=== PATIENT | female | born 1995 | race African-American/Black ===

== ENCOUNTER 2017-09-08 16:10 | Emergency (ER) | payer MEDICAID ==
[~2017-09-08] VITALS: Ht 177.8 cm; Wt 70.3 kg
[2017-09-08 16:58] LABS: Basophils # (auto) 0 uL; Basophils % (auto) 0.7 % (0.0-2.0); Eosinophils # (auto) 0.1 uL; Eosinophils % (auto) 2.2 % (0.0-7.0); Hematocrit 38.9 % (36.0-46.0); Hemoglobin 13.1 g/dL (12.2-16.2); Lymphocytes # (auto) 2.7 uL; Lymphocytes % (auto) 50.5 % (10.0-50.0); Mean Corpuscular Hemoglobin 30.1 pg (28.0-32.0); Mean Corpuscular Hgb Conc. 33.8 g/dL (32.0-36.0); Mean Corpuscular Volume 89.2 fL (80.0-100.0); Mean Platelet Volume 9.2 fL (6.9-10.8); Monocytes # (auto) 0.3 uL; Monocytes % (auto) 6.1 % (0.0-12.0); Neutrophils # (auto) 2.2 uL; Neutrophils % (auto) 40.5 % (37.0-80.0); Nucleated Red Blood Cells % 0.1 %; Platelet Count (auto) 167 10^3/uL (140-450); Red Cell Distribution Width 14.9 % (11.8-14.3); White Blood Cell 5.4 10^3/uL (4.4-10.8)
[2017-09-08 17:11] LABS: Albumin 3.8 g/dL (3.4-5.0); Anion Gap 7 (5-15); Aspartate Aminotransferase 14 U/L (15-37); BUN/Creatinine Ratio 10.7; Blood Urea Nitrogen 9 mg/dL (7-18); Carbon Dioxide 26 mmol/L (21-32); Chloride 106 mmol/L (98-107); GFR African American 109 mL/min; GFR Non-African American 90 mL/min; Glucose 86 mg/dL (74-106); Magnesium 2.1 mg/dL (1.6-2.6); Sodium 139 mmol/L (136-145)
[2017-09-08 17:16] LABS: Alkaline Phosphatase 61 U/L (45-117); Bilirubin, Total 0.3 mg/dL (0.2-1.0); Total Protein 8.1 g/dL (6.4-8.2)
[2017-09-08 22:19] VITALS: BP 100/52
== END 2017-09-08 22:35 | disposition home or self-care (01) ==
LOC: ER 16:16
DX: G93.0 Cerebral cysts (principal); R07.89 Other chest pain
CPT/HCPCS: 36415; 70450; 71010; 80053; 83735; 84484; 84702; 85025; 85379; 93005

== ENCOUNTER 2017-12-05 14:39 | Emergency (ER) | payer MEDICAID ==
[~2017-12-05] VITALS: Ht 180.3 cm; Wt 71.7 kg
[2017-12-05 22:10] LABS: Basophils # (auto) 0 uL; Basophils % (auto) 0.9 % (0.0-2.0); Eosinophils # (auto) 0.1 uL; Eosinophils % (auto) 1.4 % (0.0-7.0); Hematocrit 39.9 % (36.0-46.0); Hemoglobin 13.5 g/dL (12.2-16.2); Lymphocytes # (auto) 2.6 uL; Lymphocytes % (auto) 49.6 % (10.0-50.0); Mean Corpuscular Hemoglobin 30.3 pg (28.0-32.0); Mean Corpuscular Hgb Conc. 33.7 g/dL (32.0-36.0); Mean Corpuscular Volume 89.7 fL (80.0-100.0); Monocytes # (auto) 0.3 uL; Monocytes % (auto) 5.1 % (0.0-12.0); Neutrophils # (auto) 2.3 uL; Nucleated Red Blood Cells % 0.2 %; Platelet Count (auto) 188 10^3/uL (140-450); Red Blood Cells 4.44 10^6/uL (4.0-5.20); Red Cell Distribution Width 14.6 % (11.8-14.3); White Blood Cell 5.3 10^3/uL (4.4-10.8)
[2017-12-05 22:33] LABS: Albumin 4.1 g/dL (3.4-5.0); BUN/Creatinine Ratio 11.5; Bilirubin, Total 0.8 mg/dL (0.2-1.0); Calcium 9.1 mg/dL (8.5-10.1); Magnesium 2.3 mg/dL (1.6-2.6); Potassium 3.9 mmol/L (3.5-5.1); Total Protein 8.4 g/dL (6.4-8.2)
[2017-12-05 23:23] LABS: Urine Bacteria NONE SEEN /hpf (None Seen); Urine Blood Negative /uL (Negative); Urine Mucus FEW (None Seen); Urine WBC 11 /hpf (0 - 5)
[2017-12-06] MEDS ORDERED: SODIUM CHLORIDE 0.9% 1,000 ML IV ONE (01:00)
[2017-12-06 02:08] VITALS: BP 110/78
== END 2017-12-06 02:22 | disposition home or self-care (01) ==
LOC: ER 14:39
DX: N39.0 Urinary tract infection, site not specified (principal); Z88.0 Allergy status to penicillin
CPT/HCPCS: 36415; 80053; 81001; 81025; 82150; 83690; 83735; 85025; 96360

== ENCOUNTER 2018-05-16 14:49 | Emergency (ER) | payer MEDICAID, OTHER ==
[~2018-05-16] VITALS: Ht 177.8 cm; Wt 69.4 kg
[2018-05-16 17:16] LABS: Urine Bacteria NONE SEEN /hpf (None Seen); Urine Blood Negative /uL (Negative); Urine Mucus FEW (None Seen); Urine Specific Gravity 1.031 (1.001-1.035); Urine WBC 21 /hpf (0 - 5)
[2018-05-16 18:57] VITALS: BP 106/68
== END 2018-05-16 18:19 | disposition home or self-care (01) ==
LOC: ER 14:49
DX: S09.90XA Unspecified injury of head, initial encounter (principal); N39.0 Urinary tract infection, site not specified; Z88.0 Allergy status to penicillin; W01.198A Fall on same level from slipping, tripping and stumbling with subsequent striking against other object, initial encounter; Y93.01 Activity, walking, marching and hiking; Y99.8 Other external cause status; Y92.89 Other specified places as the place of occurrence of the external cause
CPT/HCPCS: 70450; 81001; 81025

== ENCOUNTER 2018-06-18 22:48 | Emergency (ER) | payer OTHER ==
[~2018-06-18] VITALS: Ht 177.8 cm; Wt 68.0 kg
[2018-06-18 23:12] VITALS: BP 118/75
== END 2018-06-19 04:00 | disposition left against medical advice (07) ==
LOC: EDBD 22:48 → ER 22:48
DX: R10.2 Pelvic and perineal pain (principal); R11.2 Nausea with vomiting, unspecified; Z53.21 Procedure and treatment not carried out due to patient leaving prior to being seen by health care provider

== ENCOUNTER 2020-01-07 14:01 | Emergency (ER) | payer OTHER ==
[~2020-01-07] VITALS: Ht 177.8 cm; Wt 72.6 kg
[2020-01-07 14:24] VITALS: BP 121/75
[2020-01-07 16:37] LABS: Urine Bacteria MANY /hpf (None Seen); Urine Blood Negative /uL (Negative); Urine Budding Yeast OCCASIONAL /hpf (None Seen); Urine Mucus FEW (None Seen); Urine WBC 9 /hpf (0 - 5)
== END 2020-01-07 20:02 | disposition home or self-care (01) ==
LOC: ER 14:04
DX: O23.41 Unspecified infection of urinary tract in pregnancy, first trimester (principal); O20.0 Threatened abortion; O99.511 Diseases of the respiratory system complicating pregnancy, first trimester; Z88.0 Allergy status to penicillin; Z3A.01 Less than 8 weeks gestation of pregnancy
CPT/HCPCS: 36415; 76801; 76817; 81001; 81025; 84702

== ENCOUNTER 2022-03-27 11:06 | Emergency (ER) | payer OTHER ==
[~2022-03-27] VITALS: Ht 177.8 cm; Wt 59.0 kg
[2022-03-27] MEDS ORDERED: LORazepam 2MG/ML-1ML VIAL IV ONE (11:30)
[2022-03-27] MEDS ORDERED: KETOROLAC TROMETH 30 MG/ML 1ML VIAL IV ONE (11:30)
[2022-03-27] MEDS ORDERED: SODIUM CHLORIDE 0.9% 1,000 ML IVB ONE (11:30)
[2022-03-27 11:52] LABS: Basophils # (auto) 0.1 10 ^3/uL (0-0.2); Basophils % (auto) 1.2 % (0.0-2.0); Eosinophils # (auto) 0.4 10 ^3/uL (0-0.8); Eosinophils % (auto) 7.6 % (0.0-7.0); Hematocrit 41.1 % (36.0-46.0); Hemoglobin 13.9 g/dL (12.2-16.2); Lymphocytes # (auto) 2.5 10 ^3/uL (0.4-5.4); Lymphocytes % (auto) 53.1 % (10.0-50.0); Mean Corpuscular Hemoglobin 31.5 pg (28.0-32.0); Mean Corpuscular Hgb Conc. 33.9 g/dL (32.0-36.0); Monocytes # (auto) 0.2 10 ^3/uL (0-1.3); Monocytes % (auto) 4.8 % (0.0-12.0); Neutrophils # (auto) 1.6 10 ^3/uL (1.6-8.6); Neutrophils % (auto) 33.3 % (37.0-80.0); Nucleated Red Blood Cells % 0.1 %; Red Blood Cells 4.42 10^6/uL (4.0-5.20); Red Cell Distribution Width 13.5 % (11.8-14.3); White Blood Cell 4.7 10^3/uL (4.4-10.8)
[2022-03-27 12:19] LABS: Albumin 4.2 g/dL (3.4-5.0); BUN/Creatinine Ratio 15.6; Magnesium 2.4 mg/dL (1.6-2.6); Potassium 4.5 mmol/L (3.5-5.1)
[2022-03-27 12:22] LABS: Bilirubin, Total 0.4 mg/dL (0.2-1.0); Total Protein 8.3 g/dL (6.4-8.2)
[2022-03-27 13:45] VITALS: BP 109/74
[2022-03-27] MEDS ORDERED: ALPR0.25 PO ×2 (14:14→16:37)
== END 2022-03-27 14:18 | disposition home or self-care (01) ==
LOC: EDBD 11:06 → EDUNIT# 11:06 → ER 11:06
DX: R07.89 Other chest pain (principal); F41.9 Anxiety disorder, unspecified; F12.10 Cannabis abuse, uncomplicated; Z88.0 Allergy status to penicillin; Z20.822 Contact with and (suspected) exposure to COVID-19
CPT/HCPCS: 36415; 71045; 80053; 83735; 84484; 85025; 85379; 87426; 93005; 96361; 96374; 96375; 99285; J1885; J2060; J7030

== ENCOUNTER 2022-04-09 12:12 | Inpatient (IN) | payer OTHER ==
[~2022-04-09] VITALS: Ht 177.8 cm; Wt 63.9 kg
[~2022-04-09 12:12] MED LIST: ALPR0.25 PO
[2022-04-09] MEDS ORDERED: ASPirin 81 mg TAB PO ONE (13:15)
[2022-04-09] MEDS ORDERED: MORPHINE SULFATE 4 MG/ML SYR/VIAL IV ONE (13:15)
[2022-04-09] MEDS ORDERED: ONDANSETRON HCL 4 MG/2 ML VIAL IV ONE (13:15)
[2022-04-09 13:29] LABS: Basophils # (auto) 0.1 10 ^3/uL (0-0.2); Basophils % (auto) 1.8 % (0.0-2.0); Eosinophils # (auto) 0.4 10 ^3/uL (0-0.8); Eosinophils % (auto) 9.8 % (0.0-7.0); Hematocrit 39.9 % (36.0-46.0); Hemoglobin 13.1 g/dL (12.2-16.2); Lymphocytes # (auto) 1.8 10 ^3/uL (0.4-5.4); Lymphocytes % (auto) 42.1 % (10.0-50.0); Mean Corpuscular Hemoglobin 30.2 pg (28.0-32.0); Mean Corpuscular Hgb Conc. 32.8 g/dL (32.0-36.0); Mean Corpuscular Volume 92.2 fL (80.0-100.0); Monocytes # (auto) 0.2 10 ^3/uL (0-1.3); Monocytes % (auto) 5.5 % (0.0-12.0); Neutrophils # (auto) 1.7 10 ^3/uL (1.6-8.6); Neutrophils % (auto) 40.8 % (37.0-80.0); Red Blood Cells 4.33 10^6/uL (4.0-5.20); Red Cell Distribution Width 13.5 % (11.8-14.3); White Blood Cell 4.3 10^3/uL (4.4-10.8)
[2022-04-09 13:58] LABS: Albumin 3.9 g/dL (3.4-5.0); BUN/Creatinine Ratio 8.4; Magnesium 2.3 mg/dL (1.6-2.6); Potassium 3.9 mmol/L (3.5-5.1)
[2022-04-09 14:00] LABS: Bilirubin, Total 0.6 mg/dL (0.2-1.0); Total Protein 7.5 g/dL (6.4-8.2)
[2022-04-09 15:31] LABS: Urine Amorphous Crystal FEW /hpf (None Seen); Urine Bacteria FEW /hpf (None Seen); Urine Blood Negative /uL (Negative); Urine Mucus FEW (None Seen); Urine Specific Gravity 1.018 (1.001-1.035); Urine WBC 5 /hpf (0 - 5)
[2022-04-09 15:39] LABS: Amphetamine Screen, Urine NEGATIVE (NEGATIVE); Barbiturate Scree,Urine NEGATIVE (NEGATIVE); Benzodiazephine Screen, Urine NEGATIVE (NEGATIVE); Cannabinoid Screen, Urine POSITIVE (NEGATIVE); Cocaine Screen, Urine NEGATIVE (NEGATIVE); Opiate Scree,Urine NEGATIVE (NEGATIVE); Phencyclidine Screen, Urine NEGATIVE (NEGATIVE)
[2022-04-09] MEDS ORDERED: NITROGLYCERIN 0.4 MG SL TAB SL PRN (17:45)
[2022-04-09 18:53] LABS: Cholesterol 188 mg/dL (< 200); Triglycerides 98 mg/dL (< 150)
[2022-04-09 18:55] LABS: HDL Cholesterol 64 mg/dL (40-59); LDL Cholesterol 112 mg/dL (< 100)
[2022-04-09 22:38] VITALS: BP 112/80
[2022-04-09] MEDS: CIPROFLOXACIN 400MG/200ML 200 ML IV SCH (22:59)
[2022-04-09] MEDS: ONDANSETRON HCL 4 MG/2 ML VIAL IV PRN (23:06)
[2022-04-09] MEDS: MORPHINE SULFATE INJ 2 MG/ml SYRG IV PRN (23:07)
[2022-04-10 05:00] VITALS: BP 97/63
[2022-04-10 06:06] LABS: Basophils # (auto) 0.1 10 ^3/uL (0-0.2); Basophils % (auto) 1.1 % (0.0-2.0); Eosinophils # (auto) 0.5 10 ^3/uL (0-0.8); Eosinophils % (auto) 9.5 % (0.0-7.0); Hematocrit 38.1 % (36.0-46.0); Hemoglobin 12.9 g/dL (12.2-16.2); Lymphocytes # (auto) 2.2 10 ^3/uL (0.4-5.4); Lymphocytes % (auto) 45.9 % (10.0-50.0); Mean Corpuscular Hemoglobin 30.8 pg (28.0-32.0); Mean Corpuscular Hgb Conc. 33.8 g/dL (32.0-36.0); Mean Corpuscular Volume 91.1 fL (80.0-100.0); Monocytes # (auto) 0.3 10 ^3/uL (0-1.3); Monocytes % (auto) 5.7 % (0.0-12.0); Neutrophils # (auto) 1.8 10 ^3/uL (1.6-8.6); Neutrophils % (auto) 37.8 % (37.0-80.0); Nucleated Red Blood Cells % 0.1 %; Red Blood Cells 4.19 10^6/uL (4.0-5.20); Red Cell Distribution Width 13.3 % (11.8-14.3); White Blood Cell 4.8 10^3/uL (4.4-10.8)
[2022-04-10 06:24] LABS: Albumin 3.5 g/dL (3.4-5.0); Potassium 4.3 mmol/L (3.5-5.1)
[2022-04-10 06:27] LABS: BUN/Creatinine Ratio 8.1; Bilirubin, Total 0.6 mg/dL (0.2-1.0); Total Protein 6.9 g/dL (6.4-8.2)
[2022-04-10 08:06] VITALS: BP 105/58
[2022-04-10] MEDS: ONDANSETRON HCL 4 MG/2 ML VIAL IV PRN ×3 (09:19→20:42)
[2022-04-10] MEDS: CIPROFLOXACIN 400MG/200ML 200 ML IV SCH ×2 (09:20→21:59)
[2022-04-10] MEDS: MORPHINE SULFATE INJ 2 MG/ml SYRG IV PRN (09:20)
[2022-04-10 11:59] VITALS: BP 123/75
[2022-04-10] MEDS ORDERED: LIDOCAINE 5% TOPICAL PATCH TOP SCH (13:13)
[2022-04-10 17:00] VITALS: BP 103/70
[2022-04-10] MEDS: KETOROLAC TROMETH 30 MG/ML 1ML VIAL IV PRN (17:03)
[2022-04-10 22:00] VITALS: BP 113/80
[2022-04-10] MEDS ORDERED: FAMOTIDINE 20 MG TAB PO SCH (22:00)
[2022-04-11 05:00] VITALS: BP 99/57
[2022-04-11] MEDS: KETOROLAC TROMETH 30 MG/ML 1ML VIAL IV PRN (07:46)
== END 2022-04-11 08:33 | disposition left against medical advice (07) | DRG 203 ==
LOC: ER 12:12 → TELE 17:31 → TELE-CENTR 22:12
PROVIDERS: ADMIT Registered Nurse; ATTEND Family Medicine
DX: R07.89 Other chest pain (principal); E78.5 Hyperlipidemia, unspecified; Z53.29 Procedure and treatment not carried out because of patient's decision for other reasons; J45.909 Unspecified asthma, uncomplicated; N39.0 Urinary tract infection, site not specified; R00.1 Bradycardia, unspecified; Z20.822 Contact with and (suspected) exposure to COVID-19; Z88.0 Allergy status to penicillin; Z82.49 Family history of ischemic heart disease and other diseases of the circulatory system
CPT/HCPCS: 36415; 71045; 80053; 80061; 80307; 81001; 81025; 83735; 83880; 84443; 84484; 85025; 85379; 93005; 93306; 96365; 96375; G0378; J1885; J2405